=== PATIENT | female | born 1985 | race Caucasian/White ===

== ENCOUNTER 2020-10-28 08:03 | Day surgery (SDC) | payer OTHER ==
[~2020-10-28 08:03] MED LIST: Bupivacaine 0.25% 10 ML SDV ONE; Fluorescein 5 ML Vial ONE; Methylene Blue 50 MG/10 ML Ampule ONE; Octyl 2-Cyanoacrylate 1 Tube ONE
--- NOTE | 2020-10-28 08:36 | PCM.PREANE ---
Preanesthetic Assessment - Procedure Proposed Procedure: Lap assited vag Hysterectomy, poss unilaterl ar enma salpingo-oophorectomy - Anesthesia/Transfusion/Family Hx Anesthesia History: Prior Anesthesia Without Reaction Family History of Anesthesia Reaction: No Transfusion History: No Prior Transfusion(s) - Review of Systems General: No Symptoms Pulmonary: No Symptoms Cardiovascular: No Symptoms (HTN, Well controlled) Gastrointestinal: No Symptoms Neurological: No Symptoms Other: Reports: None - Physical Assessment NPO Status Date: 10/27/20 NPO Status Time: 20:00 Height: 5 ft 7 in Weight: 87.997 kg ASA Class: 2 Mental Status: Alert & Oriented x3 Airway Class: Mallampati = 2 Dentition: Reports: Normal Dentition Thyro-Mental Finger Breadths: 3 Mouth Opening Finger Breadths: 3 ROM/Head Extension: Full Lungs: Clear to Auscultation, Normal Respiratory Effort - Allergies Allergies/Adverse Reactions: Allergies Allergy/AdvReac Type Severity Reaction Status Date / Time levofloxacin [From Levaquin] Allergy Stomach Verified 10/22/20 12:42 Upset - Acknowledgements Anesthesia Type Planned: General Anesthesia Pt an Appropriate Candidate for the Planned Anesthesia: Yes Alternatives and Risks of Anesthesia Discussed w Pt/Guardian: Yes Pt/Guardian Understands and Agrees with Anesthesia Plan: Yes PreAnesthesia Questionnaire HEENT History: Reports: None Cardiovascular History: Reports: Hypertension Respiratory History: Reports: None Gastrointestinal History: Reports: None Genitourinary History: Reports: None [employer] MACHINE History: Reports: Musculoskeletal History: Reports: None Neurological History: Reports: None Psychiatric History: Reports: Anxiety Endocrine/Metabolic History: Reports: None Hematologic History: Reports: None Immunologic History: Reports: None Oncologic (Cancer) History: Reports: None Dermatologic History: Reports: None - Past Surgical History Head Surgeries/Procedures: Reports: None HEENT Surgical History: Reports: Tonsillectomy Cardiovascular Surgical History: Reports: None Respiratory Surgical History: Reports: None GI Surgical History: Reports: Appendectomy Female Surgical History: Reports: Cervical Conization Endocrine Surgical History: Reports: None Neurological Surgical History: Reports: None Musculoskeletal Surgical History: Reports: None Oncologic Surgical History: Reports: None Dermatological Surgical History: Reports: None - SUBSTANCE USE Tobacco Use Status *Q: Never Tobacco User - HOME MEDS Home Medications: Home Meds Losartan/Hydrochlorothiazide [Hyzaar 50-12.5 Tablet] 1 tab PO DAILY 10/22/20 [History] Sertraline HCl [Zoloft] 50 mg PO BEDTIME 10/22/20 [History] - CURRENT (IN HOUSE) MEDS Current Meds: Current Medications Discontinued Medications Bupivacaine HCl (Bupivacaine 0.25% 10 Ml Sdv) Confirm Administered Dose 20 ml .ROUTE .STK-MED ONE Stop: 10/28/20 07:49 Fluorescein Sodium (Fluorescein 5 Ml Vial) Confirm Administered Dose 5 ml .ROUTE .STK-MED ONE Stop: 10/28/20 07:49 Acetaminophen (Ofirmev 1000 Mg/100 Ml) Confirm Administered Dose 100 mls @ as directed .ROUTE .STK-MED ONE Stop: 10/28/20 07:36 Methylene Blue (Methylene Blue 50 Mg/10 Ml Ampule) Confirm Administered Dose 50 mg .ROUTE .STK-MED ONE Stop: 10/28/20 07:49 Octyl Cyanoacrylate (Octyl 2-Cyanoacrylate 1 Tube) Confirm Administered Dose 1 applic .ROUTE .STK-MED ONE Stop: 10/28/20 07:49
[2020-10-28] MEDS ORDERED: Rocuronium Bromide 50 MG/5 ML Syringe ONE (08:39)
[2020-10-28] MEDS ORDERED: fentaNYL 100 MCG/2 ML SDV ONE ×2 (08:39→12:05)
[2020-10-28] MEDS ORDERED: Midazolam 1 MG/ML 2 ML SDV ONE (08:39)
[2020-10-28] MEDS ORDERED: Lidocaine 2% 5 ML SDV ONE (08:39)
[2020-10-28] MEDS ORDERED: Propofol 200 MG/20 ML SDV ONE (08:39)
[2020-10-28] MEDS ORDERED: Dexamethasone 4 MG/ML 5 ML MDV ONE (08:40)
[2020-10-28] MEDS ORDERED: Ondansetron 4 MG/2 ML SDV ONE (08:40)
[2020-10-28] MEDS ORDERED: Dexmedetomidine 200 MCG/2 ML SDV ONE (08:44)
[2020-10-28] MEDS ORDERED: fentaNYL 100 MCG/2 ML SDV IVPUSH PRN (08:58)
[2020-10-28] MEDS ORDERED: Morphine 2 MG/ML SYRINGE IVPUSH PRN (08:58)
[2020-10-28] MEDS ORDERED: Naloxone 0.4 MG/ML SDV IVPUSH PRN (08:58)
[2020-10-28] MEDS ORDERED: HYDROmorphone 1 MG/ML Syringe IVPUSH PRN (08:58)
[2020-10-28] MEDS ORDERED: Albuterol 0.083% 2.5 MG/3 ML Neb Soln NEB PRN (08:58)
[2020-10-28] MEDS ORDERED: Metoclopramide 10 MG/2 ML SDV IVPUSH PRN (08:58)
[2020-10-28] MEDS ORDERED: Ondansetron 4 MG/2 ML SDV IVPUSH PRN ×2 (08:58→12:31)
[2020-10-28] MEDS ORDERED: Sodium Chloride 0.9% 10 ML Syringe FLUSH PRN (09:04)
[2020-10-28] MEDS ORDERED: Sodium Chloride 0.9% 2.5 ML Syringe FLUSH PRN (09:04)
[2020-10-28] MEDS ORDERED: Sodium Chloride 0.9% 10 ML SDV IV PRN (09:04)
[2020-10-28] MEDS ORDERED: Lactated Ringers 1,000 ML IV SCH (09:15)
[2020-10-28 09:26] LABS: BLOOD UREA NITROGEN,BUN 14 mg/dL (7.0-18.0); CARBON DIOXIDE,CO2 27.9 mmol/L (21.0-32.0); CHLORIDE,CL 106 mmol/L (98-107); GLUCOSE RANDOM 90 mg/dL (74-106); POTASSIUM,K 3.5 mmol/L (3.5-5.1); SODIUM,NA 138 mmol/L (136-145)
[2020-10-28] MEDS ORDERED: Bupivacaine 25%/EPINEPHrine/PF 30 ML ONE (09:38)
[2020-10-28] MEDS ORDERED: Ketorolac 30 MG/ML SDV ONE (10:49)
[2020-10-28] MEDS ORDERED: Sugammadex Sodium 200 MG/2 ML VIAL ONE (10:50)
[2020-10-28] MEDS ORDERED: Furosemide 40 MG/4 ML VIAL ONE (11:57)
[2020-10-28] MEDS ORDERED: Glycopyrrolate 0.2 MG/ML SDV ONE (12:15)
[2020-10-28] MEDS ORDERED: Ketorolac 30 MG/ML SDV IVPUSH ONE (12:31)
[2020-10-28] MEDS ORDERED: Promethazine 25 MG/ML SDV IM PRN (12:31)
[2020-10-28] MEDS ORDERED: Morphine 4 MG/ML Syringe IVPUSH PRN (12:31)
[2020-10-28] MEDS ORDERED: Acetaminophen/oxyCODONE 325-5 MG Tab PO PRN (12:31)
--- NOTE | 2020-10-28 12:33 | PCM.OPNOTE ---
<Kelly Lowery - Last Filed: 10/28/20 12:29> - General Post-Op/Procedure Note Date of Surgery/Procedure: 10/28/20 Operative Procedure(s): Laparoscopic assisted vaginal hysterectomy with bilateral salpingectomy and cytoscopy. Findings: Normal sized, anteverted uterus Pre Op Diagnosis: 35-year-old female with menorrhagia and dysmenorrhea Post-Op Diagnosis: Same Anesthesia Technique: General ET Tube Primary Surgeon: Krissy Mcclure Apricot Washer: Olivia Martinez Apricot Washer: Kelly Lowery Pathology: Uterus and bilateral fallopian tubes Fluid Replacement, Intraop: 2,000 Output, Urine Amount: 350 EBL in mLs: 200 Complications: None known Condition: Stable <Krissy Mcclure - Last Filed: 10/28/20 12:41> - General Post-Op/Procedure Note Findings: Normal anteverted uterus Normal tubes and ovaries Small omental adhesion to the anterior abdominal wall Cystoscopy showed intact bladder and bilateral ureteral jet Pre Op Diagnosis: Agree Post-Op Diagnosis: Same Anesthesia Provider: Geoff Vasquez Free Text/Narrative:: Intake & Output 10/27/20 10/28/20 10/28/20 22:59 06:59 14:59 Intake Total 2000 Output Total 350 Balance 1650
--- NOTE | 2020-10-28 12:39 | PCM.POSTAN ---
POST ANESTHESIA ASSESSMENT - MENTAL STATUS Mental Status: Somnolent - VITAL SIGNS Vital Signs: Last Vital Signs Temp 97.5 F 10/28/20 08:50 Pulse 55 L 10/28/20 08:50 Resp 16 10/28/20 08:50 BP 152/79 H 10/28/20 08:50 Pulse Ox 99 10/28/20 08:50 - RESPIRATORY Respiratory Status: Respiratory Rate WNL, Airway Patent, O2 Saturation Stable - CARDIOVASCULAR CV Status: Pulse Rate WNL, Blood Pressure Stable - GASTROINTESTINAL GI Status: No Symptoms - PAIN Free Text/Narrative:: Resting comfortably - POST OP HYDRATION Hydration Status: Adequate & Stable
[2020-10-28] MEDS ORDERED: Dextrose 5%-0.45% NaCl 1,000 ML IV SCH (12:45)
--- NOTE | 2020-10-28 12:48 | PCM48HPAN ---
Post Anesthesia Note - EVALUATION WITHIN 48HRS OF ANESTHETIC Vital Signs in Normal Range: Yes Patient Participated in Evaluation: Yes Respiratory Function Stable: Yes Airway Patent: Yes Cardiovascular Function Stable: Yes Hydration Status Stable: Yes Pain Control Satisfactory: Yes Nausea and Vomiting Control Satisfactory: Yes Mental Status Recovered: Yes Vital Signs: Last Vital Signs Temp 97.5 F 10/28/20 08:50 Pulse 55 L 10/28/20 08:50 Resp 16 10/28/20 08:50 BP 152/79 H 10/28/20 08:50 Pulse Ox 99 10/28/20 08:50 - COMMENTS/OBSERVATIONS Free Text/Narrative:: Pt doing well post-op, VSS. No apparent anesthetic complications. Dr. Geoff Vasquez
[2020-10-28] MEDS ORDERED: Belladonna Alkaloids/Opium 16.2-30 MG Supp RECTAL ONE (15:00)
[2020-10-28] MEDS: Acetaminophen/oxyCODONE 325-5 MG Tab PO PRN (15:26)
[2020-10-28] MEDS ORDERED: Ketorolac 30 MG/ML SDV IVPUSH PRN (16:30)
[2020-10-28] MEDS: Metoclopramide 10 MG/2 ML SDV IVPUSH SCH (16:58)
[2020-10-28] MEDS: cefOXitin 2 GM in Premix Bag 1 BAG IV SCH (19:49)
[2020-10-28] MEDS ORDERED: Acetaminophen 325 MG Tab PO ONE (20:00)
[2020-10-29] MEDS: Metoclopramide 10 MG/2 ML SDV IVPUSH SCH ×2 (00:30→08:34)
[2020-10-29] MEDS: Acetaminophen/oxyCODONE 325-5 MG Tab PO PRN ×2 (01:14→08:33)
[2020-10-29] MEDS: cefOXitin 2 GM in Premix Bag 1 BAG IV SCH ×2 (02:18→08:36)
[2020-10-29 06:34] LABS: BLOOD UREA NITROGEN,BUN 9 mg/dL (7.0-18.0); CARBON DIOXIDE,CO2 29.3 mmol/L (21.0-32.0); CHLORIDE,CL 108 mmol/L (98-107); GLUCOSE RANDOM 94 mg/dL (74-106); POTASSIUM,K 4.1 mmol/L (3.5-5.1); SODIUM,NA 139 mmol/L (136-145)
[2020-10-29] MEDS ORDERED: Enoxaparin 40 MG/0.4 ML Syringe SUBCUT ONE (09:03)
--- NOTE | 2020-10-29 09:03 | PCM.SURGPN ---
- General Info Date of Service: 10/29/20 Date of Surgery/Procedure: 10/28/20 POD#: 1 Post-Op Diagnosis: Abnormal uterine bleeding. Dysmenorrhea Functional Status: Reports: Pain Controlled, Tolerating Diet, Ambulating, Urinating - Review of Systems General: Reports: No Symptoms HEENT: Reports: No Symptoms Pulmonary: Reports: No Symptoms Cardiovascular: Reports: No Symptoms Gastrointestinal: Reports: No Symptoms Genitourinary: Reports: No Symptoms Musculoskeletal: Reports: No Symptoms Skin: Reports: No Symptoms Neurological: Reports: No Symptoms Psychiatric: Reports: No Symptoms - Patient Data Vitals - Most Recent: Last Vital Signs Temp 36.6 C 10/29/20 08:25 Pulse 78 10/29/20 08:25 Resp 15 10/29/20 08:25 BP 128/95 H 10/29/20 08:25 Pulse Ox 100 10/29/20 08:25 Weight - Most Recent: 87.997 kg I&O - Last 24 Hours: Intake & Output 10/28/20 10/29/20 10/29/20 22:59 06:59 14:59 Intake Total 590 Output Total 400 900 Balance -400 -310 Lab Results Last 24 Hrs: Laboratory Results - last 24 hr 10/28/20 10/28/20 10/28/20 Range/Units 08:45 08:45 08:45 WBC 5.36 (4.0-11.0) K/uL RBC 4.54 (4.30-5.90) M/uL Hgb 14.1 (12.0-16.0) g/dL Hct 41.6 (36.0-46.0) % MCV 91.6 (80.0-98.0) fL MCH 31.1 (27.0-32.0) pg MCHC 33.9 (31.0-37.0) g/dL RDW Std Deviation 43.8 (28.0-62.0) fl RDW Coeff of Betty 13 (11.0-15.0) % Plt Count 236 (150-400) K/uL MPV 10.10 (7.40-12.00) fL Neut % (Auto) (48.0-80.0) % Lymph % (Auto) (16.0-40.0) % [place] % (Auto) (0.0-15.0) % Eos % (Auto) (0.0-7.0) % Baso % (Auto) (0.0-1.5) % Neut # (Auto) (1.4-5.7) K/uL Lymph # (Auto) (0.6-2.4) K/uL [place] # (Auto) (0.0-0.8) K/uL Eos # (Auto) (0.0-0.7) K/uL Baso # (Auto) (0.0-0.1) K/uL Nucleated RBC % 0.0 /100WBC Nucleated RBCs # 0 K/uL Sodium 138 (136-145) mmol/L Potassium 3.5 (3.5-5.1) mmol/L Chloride 106 (98-107) mmol/L Carbon Dioxide 27.9 (21.0-32.0) mmol/L BUN 14 (7.0-18.0) mg/dL Creatinine 0.9 (0.6-1.0) mg/dL Est Cr Clr Drug Dosing 85.65 mL/min Estimated GFR (MDRD) > 60.0 ml/min Glucose 90 (74-106) mg/dL Calcium 9.4 (8.5-10.1) mg/dL HCG, Qual NEGATIVE (NEG) Blood Type Antibody Screen 10/28/20 10/29/20 10/29/20 Range/Units 08:45 05:50 05:50 WBC 12.63 H (4.0-11.0) K/uL RBC 3.97 L (4.30-5.90) M/uL Hgb 12.5 (12.0-16.0) g/dL Hct 36.7 (36.0-46.0) % MCV 92.4 (80.0-98.0) fL MCH 31.5 (27.0-32.0) pg MCHC 34.1 (31.0-37.0) g/dL RDW Std Deviation 45.0 (28.0-62.0) fl RDW Coeff of Betty 13 (11.0-15.0) % Plt Count 243 (150-400) K/uL MPV 10.40 (7.40-12.00) fL Neut % (Auto) 71.2 (48.0-80.0) % Lymph % (Auto) 20.6 (16.0-40.0) % [place] % (Auto) 7.9 (0.0-15.0) % Eos % (Auto) 0.2 (0.0-7.0) % Baso % (Auto) 0.1 (0.0-1.5) % Neut # (Auto) 9.0 H (1.4-5.7) K/uL Lymph # (Auto) 2.6 H (0.6-2.4) K/uL [place] # (Auto) 1.0 H (0.0-0.8) K/uL Eos # (Auto) 0.0 (0.0-0.7) K/uL Baso # (Auto) 0.0 (0.0-0.1) K/uL Nucleated RBC % 0.0 /100WBC Nucleated RBCs # 0 K/uL Sodium 139 (136-145) mmol/L Potassium 4.1 (3.5-5.1) mmol/L Chloride 108 H (98-107) mmol/L Carbon Dioxide 29.3 (21.0-32.0) mmol/L BUN 9 (7.0-18.0) mg/dL Creatinine 0.8 (0.6-1.0) mg/dL Est Cr Clr Drug Dosing 96.36 mL/min Estimated GFR (MDRD) > 60.0 ml/min Glucose 94 (74-106) mg/dL Calcium 8.5 (8.5-10.1) mg/dL HCG, Qual (NEG) Blood Type O POSITIVE Antibody Screen NEGATIVE Med Orders - Current: Current Medications Dextrose/Sodium Chloride (Dextrose 5%-1/2 Ns) 1,000 mls @ 125 mls/hr IV ASDIRECTED [facility] Cefoxitin Sodium 2 gm/ Premix 50 mls @ 100 mls/hr IV Q6H [facility] Last Admin: 10/29/20 08:36 Dose: 100 mls/hr Documented by: Ketorolac Tromethamine (Ketorolac 30 Mg/Ml Sdv) 30 mg IVPUSH Q6H PRN PRN Reason: Pain (severe 7-10) Stop: 11/02/20 16:31 Morphine Sulfate (Morphine 4 Mg/Ml Syringe) 4 mg IVPUSH Q2H PRN PRN Reason: Pain (severe 7-10) Last Admin: 10/28/20 13:55 Dose: 4 mg Documented by: Ondansetron HCl (Ondansetron 4 Mg/2 Ml Sdv) 4 mg IVPUSH Q6H PRN PRN Reason: Nausea/Vomiting Oxycodone/Acetaminophen (Acetaminophen/Oxycodone 325-5 Mg Tab) 1 tab PO Q4H PRN PRN Reason: Pain (moderate 4-6) Last Admin: 10/28/20 20:30 Dose: 1 tab Documented by: Oxycodone/Acetaminophen (Acetaminophen/Oxycodone 325-5 Mg Tab) 2 tab PO Q4H PRN PRN Reason: Pain (moderate 4-6) Last Admin: 10/29/20 08:33 Dose: 2 tab Documented by: Promethazine HCl (Promethazine 25 Mg/Ml Sdv) 25 mg IM Q6H PRN PRN Reason: Nausea/Vomiting Sodium Chloride (Sodium Chloride 0.9% 10 Ml Syringe) 10 ml FLUSH ASDIRECTED PRN PRN Reason: Keep Vein Open Sodium Chloride (Sodium Chloride 0.9% 2.5 Ml Syringe) 2.5 ml FLUSH ASDIRECTED PRN PRN Reason: Keep Vein Open Sodium Chloride (Sodium Chloride 0.9% 10 Ml Sdv) 10 ml IV ASDIRECTED PRN PRN Reason: IV Use Discontinued Medications Acetaminophen (Acetaminophen 325 Mg Tab) 650 mg PO Q4H ONE Stop: 10/28/20 20:01 Last Admin: 10/28/20 20:55 Dose: 650 mg Documented by: Albuterol (Albuterol 0.083% 2.5 Mg/3 Ml Neb Soln) 2.5 mg NEB ONETIME PRN PRN Reason: Wheezing Belladonna Alkaloids/Opium (Belladonna Alkaloids/Opium 16.2-30 Mg Supp) 1 supp RECTAL ONETIME ONE Stop: 10/28/20 15:01 Last Admin: 10/28/20 15:26 Dose: 1 supp Documented by: Bupivacaine HCl (Bupivacaine 0.25% 10 Ml Sdv) Confirm Administered Dose 0 ml .ROUTE .STK-MED ONE Stop: 10/28/20 07:49 Dexamethasone (Dexamethasone 4 Mg/Ml 5 Ml Mdv) Confirm Administered Dose 20 mg .ROUTE .STK-MED ONE Stop: 10/28/20 08:41 Dexmedetomidine HCl (Dexmedetomidine 200 Mcg/2 Ml Sdv) Confirm Administered Dose 200 mcg .ROUTE .STK-MED ONE Stop: 10/28/20 08:45 Droperidol (Droperidol 5 Mg/2 Ml Sdv) 0.625 mg IVPUSH ONETIME PRN PRN Reason: Nausea/Vomiting Fentanyl (Fentanyl 100 Mcg/2 Ml Sdv) Confirm Administered Dose 100 mcg .ROUTE .STK-MED ONE Stop: 10/28/20 08:40 Fentanyl (Fentanyl 100 Mcg/2 Ml Sdv) 50 mcg IVPUSH Q5M PRN PRN Reason: Pain (mild 1-3) Fentanyl (Fentanyl 100 Mcg/2 Ml Sdv) Confirm Administered Dose 100 mcg .ROUTE .STK-MED ONE Stop: 10/28/20 12:06 Fluorescein Sodium (Fluorescein 5 Ml Vial) Confirm Administered Dose 5 ml .ROUTE .STK-MED ONE Stop: 10/28/20 07:49 Furosemide (Furosemide 40 Mg/4 Ml Vial) Confirm Administered Dose 40 mg .ROUTE .STK-MED ONE Stop: 10/28/20 11:58 Glycopyrrolate (Glycopyrrolate 0.2 Mg/Ml Sdv) Confirm Administered Dose 0.2 mg .ROUTE .STK-MED ONE Stop: 10/28/20 12:16 Hydromorphone HCl (Hydromorphone 1 Mg/Ml Syringe) 1 mg IVPUSH Q10M PRN PRN Reason: Pain (moderate 4-6) Acetaminophen (Ofirmev 1000 Mg/100 Ml) Confirm Administered Dose 100 mls @ as directed .ROUTE .STK-MED ONE Stop: 10/28/20 07:36 Lactated Ringer's (Ringers, Lactated) 1,000 mls @ 100 mls/hr IV ASDIRECTED [facility] Last Admin: 10/28/20 09:32 Dose: 100 mls/hr Documented by: Cefazolin Sodium/Dextrose (Ancef 2 Gm/50 Ml) Confirm Administered Dose 50 mls @ as directed .ROUTE .STK-MED ONE Stop: 10/28/20 09:30 Bupivacaine HCl/Epinephrine Bitart (Sensor Mpf 0.25%-Epi [id number]) Confirm Administered Dose 30 mls @ as directed .ROUTE .STK-MED ONE Stop: 10/28/20 09:39 Ketorolac Tromethamine (Ketorolac 30 Mg/Ml Sdv) Confirm Administered Dose 30 mg .ROUTE .STK-MED ONE Stop: 10/28/20 10:50 Ketorolac Tromethamine (Ketorolac 30 Mg/Ml Sdv) 30 mg IVPUSH ONETIME ONE Stop: 10/28/20 12:32 Last Admin: 10/28/20 13:46 Dose: Not Given Documented by: Lidocaine (Lidocaine 2% 5 Ml Sdv) Confirm Administered Dose 5 ml .ROUTE .STK-MED ONE Stop: 10/28/20 08:40 Methylene Blue (Methylene Blue 50 Mg/10 Ml Ampule) Confirm Administered Dose 0 mg .ROUTE .STK-MED ONE Stop: 10/28/20 07:49 Metoclopramide HCl (Metoclopramide 10 Mg/2 Ml Sdv) 10 mg IVPUSH ONETIME PRN PRN Reason: Nausea/Vomiting Metoclopramide HCl (Metoclopramide 10 Mg/2 Ml Sdv) 10 mg IVPUSH Q8H [facility] Stop: 10/29/20 08:01 Last Admin: 10/29/20 08:34 Dose: 10 mg Documented by: Midazolam HCl (Midazolam 1 Mg/Ml 2 Ml Sdv) Confirm Administered Dose 2 mg .ROUTE .STK-MED ONE Stop: 10/28/20 08:40 Morphine Sulfate (Morphine 2 Mg/Ml Syringe) 2 mg IVPUSH Q10M PRN PRN Reason: Pain (severe 7-10) Naloxone HCl (Naloxone 0.4 Mg/Ml Sdv) 0.1 mg IVPUSH ASDIRECTED PRN PRN Reason: Respiratory Depression Octyl Cyanoacrylate (Octyl 2-Cyanoacrylate 1 Tube) Confirm Administered Dose 0 applic .ROUTE .STK-MED ONE Stop: 10/28/20 07:49 Ondansetron HCl (Ondansetron 4 Mg/2 Ml Sdv) Confirm Administered Dose 4 mg .ROUTE .STK-MED ONE Stop: 10/28/20 08:41 Ondansetron HCl (Ondansetron 4 Mg/2 Ml Sdv) 4 mg IVPUSH ONETIME PRN PRN Reason: Nausea/Vomiting Propofol (Propofol 200 Mg/20 Ml Sdv) Confirm Administered Dose 200 mg .ROUTE .STK-MED ONE Stop: 10/28/20 08:40 Rocuronium [place] (Rocuronium [place] 50 Mg/5 Ml Syringe) Confirm Administered Dose 50 mg .ROUTE .STK-MED ONE Stop: 10/28/20 08:40 Sugammadex Sodium (Sugammadex Sodium 200 Mg/2 Ml Vial) Confirm Administered Dose 200 mg .ROUTE .STK-MED ONE Stop: 10/28/20 10:51 - Exam Wound/Incisions: Dressing Dry and Intact General: Alert HEENT: Pupils Equal Neck: Supple Lungs: Clear to Auscultation, Crackles Cardiovascular: Regular Rhythm GI/Abdominal Exam: Normal Bowel Sounds Extremities: Normal Inspection Neurological: No New Focal Deficit Psy/Mental Status: Alert Sepsis Event Note - Evaluation Sepsis Screening Result: No Definite Risk - Focused Exam Vital Signs: Vital Signs Temp Pulse Resp BP Pulse Ox 10/29/20 08:25 36.6 C 78 15 128/95 H 100 10/29/20 04:05 36.7 C 74 16 110/83 99 10/28/20 23:56 77 15 98/56 L 97 - Problem List & Annotations (1) S/P hysterectomy SNOMED Code(s): 854268863, 864424218, 560313924 Code(s): Z90.710 - ACQUIRED ABSENCE OF BOTH CERVIX AND UTERUS Status: Acute Current Visit: Yes - Problem List Review Problem List Initiated/Reviewed/Updated: Yes - My Orders Last 24 Hours: Active Orders 24 hr Category Date Time Status Discharge Patient [ADT] Routine ADT 10/29/20 08:48 Ordered Patient Status [ADT] Routine ADT 10/28/20 09:05 Active Antiembolic Devices [RC] PER UNIT ROUTINE Care 10/28/20 12:31 Active Notify Provider Intake and Out [RC] ASDIRECTED Care 10/28/20 12:31 Active Notify Provider Vital Signs [RC] ASDIRECTED Care 10/28/20 12:31 Active Overnight Pulse Oximetry [RC] Click to Edit Care 10/28/20 08:58 Active Oxygen Therapy [RC] ASDIRECTED Care 10/28/20 12:31 Active RT Aerosol Therapy [RC] ASDIRECTED Care 10/28/20 08:58 Active RT BiPAP/CPAP [RC] ASDIRECTED Care 10/28/20 08:58 Active RT Incentive Spirometry [RC] Q2HWA Care 10/28/20 12:31 Active Up With Assistance [RC] PER UNIT ROUTINE Care 10/28/20 12:31 Active Up ad Esther [RC] PER UNIT ROUTINE Care 10/28/20 12:31 Active Urinary Catheter Removal [RC] Per Unit Routine Care 10/28/20 12:31 Active Vital Signs [RC] PER UNIT ROUTINE Care 10/28/20 09:05 Active Regular Diet [DIET] Diet 10/28/20 Dinner Active Acetaminophen/oxyCODONE [Percocet 325-5 MG] Med 10/28/20 12:31 Active 1 tab PO Q4H PRN Acetaminophen/oxyCODONE [Percocet 325-5 MG] Med 10/28/20 12:31 Active 2 tab PO Q4H PRN Dextrose 5%-0.45% NaCl [Dextrose 5%-1/2 NS] 1,000 ml Med 10/28/20 12:45 Active IV ASDIRECTED Ketorolac [Toradol] Med 10/28/20 16:30 Active 30 mg IVPUSH Q6H PRN Morphine Med 10/28/20 12:31 Active 4 mg IVPUSH Q2H PRN Ondansetron [Zofran] Med 10/28/20 12:31 Active 4 mg IVPUSH Q6H PRN Promethazine [Phenergan] Med 10/28/20 12:31 Active 25 mg IM Q6H PRN Sodium Chloride 0.9% [Normal Saline] Med 10/28/20 09:04 Active 10 ml IV ASDIRECTED PRN Sodium Chloride 0.9% [Saline Flush] Med 10/28/20 09:04 Active 10 ml FLUSH ASDIRECTED PRN Sodium Chloride 0.9% [Saline Flush] Med 10/28/20 09:04 Active 2.5 ml FLUSH ASDIRECTED PRN cefOXitin [Mefoxin in Dextrose,Iso-Osm 2 GM/50 ML] 2 gm Med 10/28/20 20:00 Active Premix Bag 1 bag IV Q6H Peripheral IV Discontinue [OM.PC] Routine Oth 10/28/20 12:31 Ordered Peripheral IV Insertion Adult [OM.PC] Urgent Oth 10/28/20 09:05 Ordered Pulse Oximetry Continuous Monitoring [OM.PC] Routine Ot 10/28/20 08:58 Ordered Sequential Compression Device [OM.PC] Per Unit Routine Oth 10/28/20 09:05 Ordered Sequential Compression Device [OM.PC] Per Unit Routine Oth 10/28/20 12:31 Ordered Resuscitation Status Routine Resus Stat 10/28/20 12:31 Ordered Medication Orders Dextrose/Sodium Chloride (Dextrose 5%-1/2 Ns) 1,000 mls @ 125 mls/hr IV ASDIRECTED [facility] Cefoxitin Sodium 2 gm/ Premix 50 mls @ 100 mls/hr IV Q6H [facility] Last Admin: 10/29/20 08:36 Dose: 100 mls/hr Documented by: Infusion: 10/29/20 02:48 Dose: 100 mls/hr Documented by: Admin: 10/29/20 02:18 Dose: 100 mls/hr Documented by: Infusion: 10/28/20 20:19 Dose: 100 mls/hr Documented by: Admin: 10/28/20 19:49 Dose: 100 mls/hr Documented by: ROSALIO Ketorolac Tromethamine (Ketorolac 30 Mg/Ml Sdv) 30 mg IVPUSH Q6H PRN PRN Reason: Pain (severe 7-10) Stop: 11/02/20 16:31 Morphine Sulfate (Morphine 4 Mg/Ml Syringe) 4 mg IVPUSH Q2H PRN PRN Reason: Pain (severe 7-10) Last Admin: 10/28/20 13:55 Dose: 4 mg Documented by: JOVAN Ondansetron HCl (Ondansetron 4 Mg/2 Ml Sdv) 4 mg IVPUSH Q6H PRN PRN Reason: Nausea/Vomiting Oxycodone/Acetaminophen (Acetaminophen/Oxycodone 325-5 Mg Tab) 1 tab PO Q4H PRN PRN Reason: Pain (moderate 4-6) Last Admin: 10/28/20 20:30 Dose: 1 tab Documented by: ROSALIO Oxycodone/Acetaminophen (Acetaminophen/Oxycodone 325-5 Mg Tab) 2 tab PO Q4H PRN PRN Reason: Pain (moderate 4-6) Last Admin: 10/29/20 08:33 Dose: 2 tab Documented by: Admin: 10/29/20 01:14 Dose: 2 tab Documented by: Admin: 10/28/20 15:26 Dose: 2 tab Documented by: KAREN Promethazine HCl (Promethazine 25 Mg/Ml Sdv) 25 mg IM Q6H PRN PRN Reason: Nausea/Vomiting Sodium Chloride (Sodium Chloride 0.9% 10 Ml Syringe) 10 ml FLUSH ASDIRECTED PRN PRN Reason: Keep Vein Open Sodium Chloride (Sodium Chloride 0.9% 2.5 Ml Syringe) 2.5 ml FLUSH ASDIRECTED PRN PRN Reason: Keep Vein Open Sodium Chloride (Sodium Chloride 0.9% 10 Ml Sdv) 10 ml IV ASDIRECTED PRN PRN Reason: IV Use - Assessment Assessment (Free Text/Narrative):: 35yo P3 s/p LAVH/BS POD1 Ambulating , voiding and tolerating regular diet Stable H/H post operative Good pain control No vaginal bleeding U/O approximately 50ml/hr in last 24hrs - Plan Plan (Free Text/Narrative):: Pain control as needed Incentive spirometry Discharge instructions given Discharge home today
--- NOTE | 2020-10-29 14:01 | OR ---
SURGEON: BRUCE Martinez DATE OF PROCEDURE: 10/28/2020 PREOPERATIVE DIAGNOSES: A 35-year-old para 3 with menorrhagia and dysmenorrhea. POSTOPERATIVE DIAGNOSES: A 35-year-old para 3 with menorrhagia and dysmenorrhea. PROCEDURES: 1. Laparoscopic-assisted vaginal hysterectomy. 2. Bilateral salpingectomy. 3. Cystoscopy. ESTIMATED BLOOD LOSS: 200. INTRAVENOUS FLUIDS: 2000. URINE OUTPUT: 350. ANESTHESIA: General. COMPLICATIONS: None. PATHOLOGY: Uterus and tubes. NOTES AND FINDINGS: Normal-sized anteverted uterus. Normal-appearing pelvis. Normal-appearing tubes and ovaries. BRIEF HISTORY ABOUT THE PATIENT: A 35-year-old para 3 who came in complaining of menorrhagia and dysmenorrhea for 3 years. She had a workup done, which showed a normal-appearing uterus. EMB was negative. Thyroid function and prolactin were all normal. The patient had tried multiple treatment in the past with Mirena IUD with Depo-Provera, but she was not satisfied with this treatment. As a result, she did desire definitive management. PROCEDURE IN DETAIL: The patient was taken to the operating room where she was placed in the dorsal lithotomy position with Roberto Carlos stirrups. She was prepared and draped in the normal sterile fashion. A Drake catheter was placed. A speculum was used to expose the cervix after being prepped, and the anterior lip of the cervix was clamped with an Allis clamp. The cervix was dilated to accommodate the uterine manipulator, which was introduced. Attention was then paid to the abdomen. A 0.25% Marcaine was infiltrated into the subumbilical fold. A 5 mm incision was made. The abdomen was entered via direct entry with the fiberoptic trocar. Pneumoperitoneum was obtained to 15 mmHg. Then, the patient was placed in Trendelenburg position. Then, the right and left lower quadrant ports were placed 2 fingerbreadths above and superior to the anterior superior iliac spine. The lower quadrant ports were the ones with the balloon, and they were placed with direct visualization. The uterus was then elevated with the aid of the uterine manipulator. Bilaterally, the ureters were identified. The bowel was retracted out of the operative field. With the aid of the LigaSure device, the fallopian tube was then coagulated and cut all the way to the cornua. The round ligament was also transected. Then, the broad ligament was entered in, and the bladder flap was created. Prior to this, the ovarian ligament was coagulated and cut to separate the ovaries from the uterus. Then, the bladder flap was created. With the LigaSure device, the uterine vessels were skeletonized. It was also coagulated and cut. The same was done on the left side. After the bladder flap was created and fallopian tube was transected all the way to the cornua, the round ligament was also transected. Uterine vessels were also coagulated. The bladder flap was completed on the opposite side. Then, attention was placed to the vagina where the cervix was then again exposed with the aid of the weighted speculum and a right angle retractor in the anterior cul- de-sac. The cervicovaginal junction was infiltrated with 0.25% lidocaine with epi. Then, a circumferential incision was made at the cervicovaginal junction with the Bovie. The posterior cul-de-sac was entered sharply with the Palacio scissors. A long weighted speculum was placed into the posterior cul-de-sac. The anterior colpotomy was also made with careful dissection of the vesicouterine plane to reach the peritoneum. A right angle retractor was then placed in the vesicouterine space on the right. Then, on the right with a Tab clamp, the uterosacral ligament was clamped, cut, and suture ligated with 2-0 Vicryl. Subsequently, the cardinal ligament was also clamped, cut, and suture ligated with 2-0 Vicryl. The step was repeated on the left side. With this, the uterus was detached from the supporting ligament and removed from the vagina. The pedicles were inspected and noted to be hemostatic. The posterior wall was suspended to the uterosacral ligament by the Patino culdoplasty. Then, vaginal colpotomy was sutured with 0 Polysorb. A cystoscopy was done. Bilateral ureteral jets were noted. The bladder was noted to be intact. Attention was then paid to the abdomen. The incision was inspected and noted to be hemostatic. All instrument and pad counts were correct x2. The pneumoperitoneum was reduced to 5 mmHg. Hemostasis was still noted, and the trocars were removed under direct visualization. Laparoscopic incision was approximated with 3-0 Monocryl. The patient tolerated the procedure well and was taken to the recovery room in stable condition. JUAN ANTONIO BUCKNER /[id number] MTDD
== END 2020-10-29 09:53 | disposition home or self-care (01) ==
LOC: MW.SDS 08:03 → MW.MS 12:41 → MW.SDS 10-29 09:53
PROVIDERS: ATTEND Obstetrics & Gynecology
DX: N92.0 Excessive and frequent menstruation with regular cycle (principal); I10 Essential (primary) hypertension; Z79.899 Other long term (current) drug therapy; Z90.49 Acquired absence of other specified parts of digestive tract; Z98.890 Other specified postprocedural states; Z88.8 Allergy status to other drugs, medicaments and biological substances
CPT/HCPCS: 36415; 58552; 80048; 84703; 85025; 85027; 86850; 86900; 86901; 88307; A9270; J0131; J0690; J0694; J1100; J1650; J1940; J2250; J2270; J2704; J2765; J3010; J3490; J7030; J7120; 00944; J1885; J2405